=== PATIENT | male | born 1960 | race Caucasian/White ===

== ENCOUNTER 2016-12-13 07:54 | Inpatient (IN) ==
--- NOTE | 2016-12-12 21:00 | Discharge Summary ---
<SonjabyronCriss Beto - Last Filed: 12/13/16 09:52> Date of Encounter: 12/13/16 - Discharge Diagnosis (1) Left rotator cuff tear arthropathy Priority: Primary Status: Chronic (2) Status post reverse total arthroplasty of left shoulder Priority: Primary Status: Acute (3) Hypertension Status: Chronic Qualifiers: Hypertension type: unspecified secondary hypertension Qualified Code(s): I15.9 - Secondary hypertension, unspecified; I15 - Secondary hypertension (4) Hyperlipidemia Status: Chronic Qualifiers: Hyperlipidemia type: unspecified Qualified Code(s): E78.5 - Hyperlipidemia , unspecified (5) Atrial fibrillation status post cardioversion Status: Chronic (6) Obstructive sleep apnea Status: Chronic (7) Morbid obesity with BMI of 40.0-44.9, adult Status: Chronic - Discharge Medications Home Medications: Diclofenac Sodium [Voltaren] 1 appl TP QID 12/10/15 [History] Omeprazole [PriLOSEC] 40 mg PO DAILY 12/10/15 [History] Cholecalciferol (Vitamin D3) [Vitamin D3] 10,000 unit PO MO 06/25/16 [History] HYDROcodone/Acet 5/325 mg [Lindsay 5-325 mg] 1 tab PO Q6H PRN 7 Days #28 tab 12/12 [Rx] ARIPiprazole [Abilify] 10 mg PO DAILY 12/13/16 [History] Amiodarone [Cordarone] 200 mg PO DAILY 12/13/16 [History] LORazepam [Ativan] 1 mg PO BID PRN 12/13/16 [History] Metoprolol [Lopressor] 50 mg PO BID 12/13/16 [History] Rivaroxaban [Xarelto] 20 mg PO DAILY 12/13/16 [History] Sertraline [Zoloft] 100 mg PO DAILY 12/13/16 [History] Allergies/Adverse Reactions: 3 Allergy/AdvReac Type Severity Reaction Status Date / Time Oxycodone Allergy Hives Verified 12/13/16 08:55 Primary care physician: Jill Yoder, - Patient Status Disposition: Home, Self-Care Condition: Good - Discharge Instructions Instructions: Atrial Fibrillation (DC) Follow Up With: Jannette Avitia MD [Partnered Physician] - 01/13/17 1:20 pm Jill Yoder CNP [Primary Care Provider] - Leonid Vance MD [Partnered Physician] - 01/12/17 4:45 pm Criss Lau PAC [Physician Inside Sales Representative] - 12/23/16 8:15 am Additional Instructions: Discharge Instructions: Total Shoulder Please call [facility] ([phone]), your Primary Care Physician, or report to the Emergency Room if you have any of the following symptoms: Nausea, vomiting, fever greater that 101.5, swelling, chest pain, shortness of breath, increased pain/redness/drainage/odor for your incision site, numbness/ tingling, or any other concerning symptoms. ACTIVITY: Always keep your arm in the sling. Do not raise your arm away from your body. Do not use your arm to help with getting in or out of bed. No weight bearing permitted. Only perform those exercises given to you by your therapist. MEDICATIONS: Upon discharge resume your home medications. Take all the medications as prescribed. Take a stool softener if taking narcotic pain medications. Stool softeners are only effective if you drink enough fluids. Drink 6-8 glass of water or fluids a day, unless this is not allowed for another health problem. Despite using stool softeners, if you haven't had a bowel movement in 3 days, please switch to a gentle laxative. Gentle laxatives are sold over the counter. You should have a bowel movement within 24 hours, if not call the office. You will be discharged from the hospital with a prescription for pain medication. You are encouraged to decrease the use of narcotic pain medication as tolerated. Should you require a refill, please call the office. [facility] prescribes narcotic pain medication for only 4-6 weeks after surgery. If you require pain medication beyond this time period, you may be referred to your Primary Care Physician or to the Pain Clinic for further evaluation. Plan ahead for refills on pain medication as many narcotics either need to be picked up at the office or mailed. It is best to call 48-72 hours in advance of needing a prescription refill so you don't run out of medication. To help control the post-operative pain, you may take NSAIDs (Aleve,Advil, Motrin, Ibuprofen, Naprosyn) or Tylenol as prescribed on the bottle in addition to the pain medication. WOUND CARE: Leave the dressing on for 7-10 days. You may change the dressing if it becomes saturated greater than 50%. Do not get the dressing wet at anytime. Wash your hands with antibacterial soap, rinse and dry prior to any wound care. If you have meliza the visiting nurse or rehab facility can remove the stapes 10-14 days after surgery and place steri-strips across the wound. Leave the steri-strips in place until they fall off on their own. You may let water from the shower run on top of the steri-strips. If you do not have a visiting nurse or rehab facility, you will need to return to the office at 10-14 days for the meliza to be removed. If you have itching or redness around the dressing call the office. FOLLOW-UP: Please follow up with your surgeon in the orthopedic clinic, as scheduled - Hospital Course Hospital course: Mr. May is a 56 year old male - Time Spent with Patient Total time spent providing and/or coordinating discharge services: <Leonid Vance - Last Filed: 12/14/16 06:38> Date of Encounter: 12/14/16 Time of Encounter: 06:38 - Discharge Diagnosis (1) Hypertension Priority: Secondary Status: Chronic Qualifiers: Hypertension type: unspecified secondary hypertension Qualified Code(s): I15.9 - Secondary hypertension, unspecified; I15 - Secondary hypertension (2) Hyperlipidemia Priority: Secondary Status: Chronic Qualifiers: Hyperlipidemia type: unspecified Qualified Code(s): E78.5 - Hyperlipidemia , unspecified (3) Atrial fibrillation status post cardioversion Priority: Secondary Status: Chronic (4) Obstructive sleep apnea Priority: Secondary Status: Chronic (5) Morbid obesity with BMI of 40.0-44.9, adult Priority: Secondary Status: Chronic (6) Left rotator cuff tear arthropathy Priority: Primary Status: Chronic (7) Status post reverse total arthroplasty of left shoulder Priority: Primary Status: Acute Primary care physician: Jill Yoder, - Patient Status Functional capacity at discharge: independent ambulation Overall status at discharge: patient is progressing back to baseline - Hospital Course Hospital course: Mr. May is a 56 year old male Status post left total shoulder replacement. Patient discharged same day postop - Time Spent with Patient Total time spent providing and/or coordinating discharge services:
--- NOTE | 2016-12-13 08:51 | Anesthesia Evaluation PreOp ---
Date of Encounter: 12/13/16 Time of Encounter: 08:49 - Past History Planned Operation: Left shoulder reverse ball and socket Cardiac History: HTN, Hyperlipidemia, Arrhythmia (A fib; diagnosed 2 months ago ; failed electrical cardioversion and was successfully treated with medications in the hospital 2 months ago) Pulmonary History: CELSO Dx (uses CPAP) DIAL MOUNTER History: Other (anxiety) Other Medical History: Other (BMI 41) Anesthesia History: No Prior Anesthetic Complications Alcohol Use: none Drug use: none Medications and Allergies Aripiprazole [Abilify] 2.5 mg PO DAILY 11/20/15 [History] LORazepam [Ativan] 0.5 mg PO BID 11/20/15 [History] Diclofenac Sodium [Voltaren] 1 appl TP QID 12/10/15 [History] Omeprazole [PriLOSEC] 40 mg PO DAILY 12/10/15 [History] Trazodone HCl 50 mg PO HS 12/10/15 [History] Ibuprofen [Motrin] 800 mg PO Q8HR #30 tablet 06/24/16 [Rx] Cholecalciferol (Vitamin D3) [Vitamin D3] 10,000 unit PO MO 06/25/16 [History] FLUoxetine HCl [Fluoxetine HCl] 60 mg PO DAILY 06/25/16 [History] FLUoxetine HCl [Prozac] 40 mg PO QAM PRN 06/25/16 [History] Lisinopril/Hydrochlorothiazide [Zestoretic 20-25 mg Tablet] 1 each PO DAILY [History] Lorcaserin HCl [Belviq] 10 mg PO DAILY 06/25/16 [History] Naproxen [Naprosyn] 500 mg PO BID PRN 06/25/16 [History] hydroCHLOROthiazide [Hydrochlorothiazide] 25 mg PO DAILY 06/25/16 [History] HYDROcodone/Acet 5/325 mg [Lilburn 5-325 mg] 1 tab PO Q6H PRN 7 Days #28 tab 12/12 [Rx] 3 Allergy/AdvReac Type Severity Reaction Status Date / Time Oxycodone Allergy Hives Verified 12/07/16 11:59 - Meds/Allergy Pre-op Review Medications Reviewed: Yes Allergies Reviewed: Yes Beta Blockers on Current Med List: Yes If Beta Blockers taken, Date/Time (Last Dose taken): 12-13-16 metoprolol 6:30 Anesthesia Results - Labs Laboratory Tests 12/07/16 12/07/16 12/07/16 12:15 12:15 12:15 WBC 8.9 Hgb 13.4 Hct 39.9 Plt Count 236 PT 12.3 H INR 1.1 APTT 32.6 Sodium 140 Potassium 3.7 Chloride 106 Carbon Dioxide 26 BUN 12 Creatinine 0.90 Est GFR ( Amer) > 60 Est GFR (Non-Af Amer) > 60 BUN/Creatinine Ratio 13 - Imaging EKG: report reviewed, image reviewed (ATRIAL FIBRILLATION WITH RAPID VENTRICULAR RESPONSE) Anesthesia Exam Weight: 127 kg NPO (# of Hours): > 8 hrs - HEENT Pupil (Motor): Pupils equal, EOMI Mallampati: III (short TM distance) Teeth: Normal Oral Opening: Greater than 3 - DIAL MOUNTER LOC: Oriented DIAL MOUNTER Motor: Normal RUE, Normal LUE, Normal RLE, Normal LLE, Normal Face - Cardiac Rhythm: Regular Murmur: None - Pulmonary Breath Sounds: bilateral Clear Respiratory Effort: Symmetrical Anesthesia Assess/Plan ASA Score: 3 Modified Ki Scale for Level of Consciousness: Cooperative, oriented, and tranquil Anesthetic Plan: General, Regional, Precautions (C-Mac in the room for intubation; LMA was successfully used for last shoulder surgery) Monitoring Plan: Standard Monitors Recovery Plan: PACU
[2016-12-13] MEDS ORDERED: *HR* Midazolam HCl 2 MG/2 ML VIAL ONE (09:07)
[2016-12-13] MEDS ORDERED: *HR* Propofol 200 MG/20 ML VIAL IVP ONE (09:07)
[2016-12-13] MEDS ORDERED: *HR* FentaNYL (PF) 100 MCG/2 ML VIAL ONE (09:07)
[2016-12-13] MEDS ORDERED: Lidocaine -MPF 2% 2 ML VIAL ONE (09:09)
[2016-12-13] MEDS ORDERED: Dexamethasone 4 MG/ML VIAL ONE ×2 (09:09→10:23)
--- NOTE | 2016-12-13 09:24 | History & Physical Report ---
Date of Encounter: 12/13/16 Time of Encounter: 09:23 24 Hour HP Update - Instructions Instructions: If the History and Physical is less than 30 days old and was completed prior to A.M. admission and or procedure and has NOT been updated on calendar day of procedure please complete this update prior to performing procedure. - Update Patient reports changes in Medical Condition: No Changes in examination, assessment, or condition: No Changes in Medication: No Preop tests/diagnostics Reviewed: Yes Surgery Remains Indicated: Yes Consent for Planned Operative Procedure(s) Verified: Yes - Pre-Operative Checklist Preoperative Checklist Indicated: No Prophylactic Antibiotic Ordered: Yes Is VTE Prophylaxis Indicated?: Yes
[2016-12-13] MEDS ORDERED: CeFAZolin Pre 2,000 MG/100 ML 2,000 MG/100 ML BAG IVPB ONE (09:33)
[2016-12-13] MEDS ORDERED: Acetaminophen IV 1,000 MG/100 ML INFUS..BTL ONE (09:42)
[2016-12-13] MEDS ORDERED: ROPIVACAINE HCL/PF 0.5% 30 ML VIAL ONE (09:42)
[2016-12-13] MEDS ORDERED: Ringers Solution, Lactated 1,000 ML IVC SCH ×2 (09:45→12:04)
[2016-12-13] MEDS ORDERED: Lidocaine -MPF 1% 2 ML VIAL ID ONE (09:49)
[2016-12-13] MEDS ORDERED: Ondansetron 4 MG/2 ML VIAL ONE (10:23)
[2016-12-13] MEDS ORDERED: Ketorolac 30 MG/ML VIAL ONE (10:28)
[2016-12-13] MEDS ORDERED: *HR* HYDROmorphone (PF) 1 MG/ML SYRINGE IVP PRN ×2 (10:34→12:04)
[2016-12-13] MEDS ORDERED: Ondansetron 4 MG/2 ML VIAL IVP PRN ×2 (10:34→12:04)
--- NOTE | 2016-12-13 11:03 | Orthopedic Operative Note ---
Date of procedure: 12/13/16 Pre-op diagnosis: Left shoulder cuff tear arthropathy Post-op diagnosis: same Procedure: Procedure: Total Shoulder Replacment Reverse, left Estimated blood loss: 100 cc Hardware: Metal and polyethylene replacement: Arthrex large glenoid baseplate, 2 4.5 screws. 1 6.5 screw, 42+4 glenosphere, 7 humeral stem, poly insert 3 Exam Under anesthesia: Full motion no instability. Procedural Notes: Irreparable tear supraspinatus tendon. Operative procedure: The patient was brought to the operating room and placed on the operating room table. After general anesthesia was administered the operative shoulder was examined. Findings were noted. The patient was placed in the modified beachchair position. All pressure points were padded appropriately. And the head was stabilized in the neutral position. The operative extremity was prepped and draped in the sterile surgical fashion. The patient received IV antibiotics prior to skin incision. A standard deltopectoral approach was made to the operative shoulder. Incision was made to the skin and subcutaneous tissue,hemo stasis was obtained with Bovie cautery. Using careful blunt dissection the cephalic vein was identified and mobilized medially. The deltopectoral interval was developed and the clavipectoral fascia was incised. The subscap was released off the lesser tuberosity and tagged with #2 FiberWire suture that Was irreparable. The humerus was dislocated patient noted to have irreparable tear supraspinatus tendon, and the humeral cut was made along the anatomic neck. Anterior and posterior Bankart retractors were placed to expose the glenoid. The glenoid guide was seated and the centering hole was made. It was reamed with the appropriate reamer. The large baseplate was seated and secured with (2) 4.5 screws and one 6.5 screw. The baseplate was irrigated and dried and the 22+4 Glenosphere was seated and secured with the Brady taper. The Brady taper was tested and found to be secure the humerus was redislocated and prepared with the diaphyseal reamers, followed by a broaching process up to the appropriate size 7 in the patient's anatomic version. The metaphyseal reamer was then utilized. Trial reduction found the shoulder to be relocatable. Trial components were removed and the appropriate 7 stem was impacted in place in the patient's anatomic version. Trial reduction found the shoulder to be relocatable and stable with the appropriate 3. Trial component was removed and the real 3 was seated and secured the shoulder was reduced. The shoulder had excellent motion and excellent stability and no evidence of dislocation. The deep tissue was irrigated with pulse irrigation. The PA closed the shoulder. The deltopectoral interval was closed with a running #1 PDS suture, subcutaneous tissue was irrigated and closed with 0 PDS suture, the skin was closed with Dermabond. The patient was placed in a sterile dressing, abduction brace and extubated. The patient was then transferred to the recovery room in stable condition. Anesthesia: GETA Surgeon: Leonid Vance Condition: stable Disposition: PACU
--- NOTE | 2016-12-13 11:55 | Anesthesia Evaluation Post Op ---
Date of Encounter: 12/13/16 Time of Encounter: 11:45 - Vital Signs Vital Signs: Vital Signs/O2 Sat/Glucose, Most Current Temp Pulse Resp BP Pulse Ox 12/13/16 11:41 75 14 118/86 95 12/13/16 11:31 75 12 116/81 92 12/13/16 11:21 97.6 F 84 18 135/98 93 12/13/16 10:13 60 16 148/102 96 12/13/16 09:39 98.4 F 64 18 117/75 95 12/13/16 09:00 98.4 F 64 18 117/75 95 - Airway Airway: Non-obstructed - Cardiovascular Regular Rate, Baseline Rhythm - Mental Status Mental Status: Alert & Oriented, Answers Appropriately - Pain Pain Scale: 1 Pain Scale used: Numeric (1 - 10) - Nausea Vomiting Nausea Vomiting: Not Present Notes: 12/13/16 11:55 refused ice chips - Discharge PostOp Status: Transfer Patient to floor
[2016-12-13] MEDS ORDERED: Naloxone 0.4 MG/ML INJ IVP PRN (12:04)
[2016-12-13] MEDS ORDERED: *HR* HYDROcodone/Acet 5/325 mg TABLET PO PRN (12:04)
[2016-12-13] MEDS ORDERED: Sennosides 8.6 MG TABLET PO PRN (12:04)
[2016-12-13] MEDS ORDERED: *HR* LORazepam 1 MG TABLET PO PRN (12:04)
[2016-12-13] MEDS ORDERED: traMADol 50 MG TABLET PO PRN (12:04)
[2016-12-13 12:14] LABS: Hematocrit 37.9 % (37.5-50.1); Hemoglobin 12.8 g/dL (12.9-16.9)
[2016-12-13] MEDS ORDERED: *HR* Amiodarone 200 MG TABLET PO SCH (15:00)
[2016-12-13] MEDS ORDERED: ceFAZolin 3,000 MG in D5% in Water 100 ML IVPB SCH ×2 (15:00→18:00)
[2016-12-13] MEDS ORDERED: FLUARIX QUAD 2017-18 36MOS UP/PF 0.5 ML SYRINGE IM ONE (15:58)
[2016-12-13] MEDS ORDERED: *HR* Enoxaparin 30 MG/0.3 ML SYRINGE SQ SCH (18:00)
[2016-12-13 19:09] VITALS: BP 116/73
[2016-12-13] MEDS ORDERED: MOM Conc 10 ML UD.LIQ PO PRN (21:00)
[2016-12-13] MEDS ORDERED: Temazepam 15 MG CAPSULE PO PRN (21:00)
[2016-12-14] MEDS ORDERED: ARIPiprazole 10 MG TABLET PO SCH (09:00)
[2016-12-14] MEDS ORDERED: *HR* Rivaroxaban 10 MG TABLET PO SCH (09:00)
[2016-12-14] MEDS ORDERED: Cholecalciferol (D-3) 1,000 UNIT TABLET PO SCH (09:00)
--- NOTE | 2016-12-15 11:19 | Electrocardiograph Report ---
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
== END 2016-12-13 17:15 | disposition home or self-care (01) | DRG 483 ==
LOC: SAMDAY 07:54 → 3NENU 11:52
PROVIDERS: ADMIT Orthopaedic Surgery; ATTEND Orthopaedic Surgery

== ENCOUNTER 2019-03-04 00:09 | Observation (INO) ==
[2019-03-04 01:02] LABS: Basophils % 0.4 %; Eosinophils # 0.1 K/mcL (0.0-0.6); Eosinophils % 1.4 %; Hematocrit 44.3 % (37.5-50.1); Hemoglobin 15.3 g/dL (12.9-16.9); Immature Granulocytes % 0.4 % (0-4); Lymphocytes # 1.8 K/mcL (0.6-4.6); Lymphocytes % 17.4 %; Mean Corpuscular HGB Conc 34.5 g/dL (31.6-35.5); Mean Corpuscular Hemoglobin 30.4 pg (28.0-33.3); Mean Corpuscular Volume 88.1 fL (83.0-100.0); Mean Platelet Volume 9.7 fL (9.4-12.4); Monocytes # 0.7 K/mcL (0.0-1.3); Neutrophils # 7.4 K/mcL (1.6-8.9); Platelet Count 243 K/mcL (140-400); Red Blood Count 5.03 M/mcL (4.19-5.50); Red Cell Distribution Width 12.6 % (11.5-14.5); Segmented Neutrophils % 73.4 %; White Blood Count 10.1 K/mcL (4.3-11.1)
[2019-03-04 01:07] LABS: INR 1.5; Prothrombin Time 17.6 Seconds (9.4-12.1)
[2019-03-04 01:14] LABS: BUN/Creatinine Ratio 19 (6-26); Blood Urea Nitrogen 17 mg/dL (6-20); Calcium 9.2 mg/dL (8.6-10.3); Carbon Dioxide 21 mEq/L (23-29); Chloride 109 mEq/L (98-107); Glucose 132 mg/dL (70-105); Osmolality,Calculated 287 (280-300); Potassium 3.6 mEq/L (3.5-5.1); Sodium 137 mEq/L (136-145); Troponin I < 0.03 ng/mL (< 0.04); eGFR For African Americans > 60 (> 60); eGFR For Non-African Americans > 60 (> 60)
[2019-03-04] MEDS ORDERED: *HR* Warfarin 5 MG TABLET PO STA (01:35)
[2019-03-04] MEDS ORDERED: Ondansetron ODT 4 MG TAB.RAPDIS SL STA (01:40)
[2019-03-04 02:55] LABS: Thyroid Stimulating Hormone 3.257 mcIU/mL (0.340-5.600)
[2019-03-04 04:28] LABS: Phosphorous 3.5 mg/dL (2.7-4.5)
[2019-03-04] MEDS ORDERED: Naloxone 0.4 MG/ML INJ IVP PRN (05:38)
[2019-03-04 07:32] LABS: INR 1.7
[2019-03-04] MEDS: Metoprolol 100 MG TABLET PO SCH ×2 (09:17→21:47)
[2019-03-04] MEDS: predniSONE 5 MG TABLET PO SCH (09:17)
[2019-03-04] MEDS ORDERED: Diltiazem CD (24hr) 120 MG CAPSULE PO SCH (10:20)
[2019-03-04] MEDS ORDERED: 0.9 % Sodium Chloride 1,000 ML IVC SCH (12:30)
[2019-03-04] MEDS: Ringers Solution, Lactated 1,000 ML IVC SCH ×2 (12:52→21:47)
[2019-03-04] MEDS ORDERED: *HR* Warfarin 5 MG TABLET PO ONE (18:00)
[2019-03-04 20:36] LABS: C.difficile Toxin A/B Gene PCR Not detected (Not detect); Campylobacter by PCR Not detected (Not detect); E. coli O157 by PCR Not detected (Not detect); Enteroaggregative E.coli(EAEC) Not detected (Not detect); Enteropathogenic E.coli(EPEC) Not detected (Not detect); Enterotoxigenic E.coli (ETEC) Not detected (Not detect); Plesiomonas shigelloides PCR Not detected (Not detect); Salmonella PCR Not detected (Not detect); Shigalike tox-prod E coli STEC Not detected (Not detect); Vibrio PCR Not detected (Not detect); Vibrio cholerae PCR Not detected (Not detect); Yersinia enterocolitica PCR Not detected (Not detect)
[2019-03-04 20:37] LABS: Adenovirus F 40/41 PCR Not detected (Not detect); Cryptosporidium by PCR Not detected (Not detect); Cyclospora cayetanensis PCR Not detected (Not detect); Entamoeba histolytica PCR Not detected (Not detect); Giardia lamblia PCR Not detected (Not detect); Shig/EnteroinvasiveE coli EIEC Not detected (Not detect)
[2019-03-04 20:38] LABS: Astrovirus PCR Not detected (Not detect); Norovirus GI/GII PCR DETECTED (Not detect); Rotavirus A PCR Not detected (Not detect); Sapovirus PCR Not detected (Not detect)
[2019-03-05 07:00] LABS: Hematocrit 41.9 % (37.5-50.1); Hemoglobin 14.4 g/dL (12.9-16.9); Mean Corpuscular HGB Conc 34.4 g/dL (31.6-35.5); Mean Corpuscular Volume 90.1 fL (83.0-100.0); Mean Platelet Volume 9.7 fL (9.4-12.4); Platelet Count 207 K/mcL (140-400); Red Blood Count 4.65 M/mcL (4.19-5.50); Red Cell Distribution Width 12.9 % (11.5-14.5); White Blood Count 6.5 K/mcL (4.3-11.1)
[2019-03-05 07:08] LABS: INR 2.2; Prothrombin Time 25.2 Seconds (9.4-12.1)
[2019-03-05 07:21] LABS: BUN/Creatinine Ratio 15 (6-26); Blood Urea Nitrogen 14 mg/dL (6-20); Calcium 8.7 mg/dL (8.6-10.3); Carbon Dioxide 25 mEq/L (23-29); Chloride 109 mEq/L (98-107); Glucose 106 mg/dL (70-105); Osmolality,Calculated 299 (280-300); Potassium 3.5 mEq/L (3.5-5.1); Sodium 144 mEq/L (136-145); eGFR For African Americans > 60 (> 60); eGFR For Non-African Americans > 60 (> 60)
[2019-03-05] MEDS ORDERED: 0.9 % Sodium Chloride 1,000 ML IVC SCH (08:45)
[2019-03-05] MEDS ORDERED: Metoprolol XL (24 HR) Succ 50 MG TAB.ER.24H PO SCH (09:00)
[2019-03-05] MEDS: predniSONE 5 MG TABLET PO SCH (09:22)
[2019-03-05 16:05] VITALS: BP 109/71
[2019-03-05] MEDS ORDERED: Warfarin perPT PO PRN (18:00)
[2019-03-05] MEDS ORDERED: *HR* Warfarin 2.5 MG TABLET PO ONE (18:00)
== END 2019-03-05 19:05 | disposition home or self-care (01) ==
LOC: EMEROOARM 00:09 → 2NENU 00:09 → SUATTDRO 04:49 → 2NENU 05:41
PROVIDERS: ADMIT Internal Medicine; ATTEND Internal Medicine

== ENCOUNTER 2019-05-15 10:00 | Observation (INO) ==
[2019-05-15 13:26] LABS: INR 2.1; Prothrombin Time 23.9 Seconds (9.4-12.1)
[2019-05-15] MEDS ORDERED: Warfarin perPT PO PRN (14:49)
[2019-05-15] MEDS ORDERED: *HR* Warfarin 5 MG TABLET PO SCH (18:00)
[2019-05-15] MEDS ORDERED: *HR* Warfarin 5 MG TABLET PO ONE (18:00)
[2019-05-16 05:46] LABS: Prothrombin Time 23.1 Seconds (9.4-12.1)
[2019-05-16] MEDS: Metoprolol XL (24 HR) Succ 50 MG TAB.ER.24H PO SCH (08:37)
[2019-05-16] MEDS: Cyanocobalamin (B-12) 1,000 MCG TABLET PO SCH (08:38)
[2019-05-16] MEDS: Cholecalciferol (D-3) 1,000 UNIT (25MCG) TABLET PO SCH (08:38)
[2019-05-16] MEDS ORDERED: *HR* Warfarin 5 MG TABLET PO ONE (18:00)
[2019-05-17 02:42] LABS: INR 2.1; Prothrombin Time 23.4 Seconds (9.4-12.1)
[2019-05-17 06:51] VITALS: BP 116/79
[2019-05-17] MEDS: Cholecalciferol (D-3) 1,000 UNIT (25MCG) TABLET PO SCH (08:28)
[2019-05-17] MEDS: Metoprolol XL (24 HR) Succ 50 MG TAB.ER.24H PO SCH (08:28)
[2019-05-17] MEDS: Cyanocobalamin (B-12) 1,000 MCG TABLET PO SCH (08:28)
== END 2019-05-17 13:18 | disposition home or self-care (01) ==
LOC: 2NENU
PROVIDERS: ADMIT Internal Medicine Clinical Cardiac Electrophysiology; ATTEND Internal Medicine Clinical Cardiac Electrophysiology